=== PATIENT | male | born 1945 | race Caucasian/White ===

== ENCOUNTER 2021-11-27 11:00 | Outpatient (CLI) | payer MEDICARE, OTHER | END 2021-11-27 11:01 | disposition home or self-care (01) | LOC: CSHLAB 11:00 | PROVIDERS: ATTEND Internal Medicine Gastroenterology | DX: Z20.822 Contact with and (suspected) exposure to COVID-19 (principal) | CPT/HCPCS: 87811 ==

== ENCOUNTER 2021-11-29 10:48 | Day surgery (SDC) | payer MEDICARE, OTHER ==
[2021-11-28 08:41] VITALS: BMI 27.4
[2021-11-29] MEDS ORDERED: Lidocaine 1% MPF 2 ML VIAL ONE (11:05)
[2021-11-29] MEDS ORDERED: Lidocaine 1% PF 5 ML VIAL ONE (11:21)
[2021-11-29] MEDS ORDERED: PROPOFOL 40 ML ONE (11:21)
== END 2021-11-29 13:17 | disposition home or self-care (01) ==
LOC: CSHSDC 10:48
PROVIDERS: ATTEND Internal Medicine Gastroenterology
PROC: 0DB48ZZ Excision of Esophagogastric Junction, Via Natural or Artificial Opening Endoscopic (ICD-10-PCS; principal; 2021-11-29)
PROC: 0D748ZZ Dilation of Esophagogastric Junction, Via Natural or Artificial Opening Endoscopic (ICD-10-PCS; 2021-11-29)
DX: K21.00 Gastro-esophageal reflux disease with esophagitis, without bleeding (principal); K22.2 Esophageal obstruction; K29.50 Unspecified chronic gastritis without bleeding; K44.9 Diaphragmatic hernia without obstruction or gangrene; E78.5 Hyperlipidemia, unspecified; I10 Essential (primary) hypertension; Z20.822 Contact with and (suspected) exposure to COVID-19
CPT/HCPCS: 43239; 43249; C1726; 88305; J2704

== ENCOUNTER 2023-03-24 13:12 | Outpatient (CLI) | payer MEDICARE, OTHER | END 2023-03-24 13:13 | disposition home or self-care (01) | LOC: CSHMRI 13:12 | PROVIDERS: ATTEND Neurological Surgery | DX: M51.17 Intervertebral disc disorders with radiculopathy, lumbosacral region (principal); M47.26 Other spondylosis with radiculopathy, lumbar region | CPT/HCPCS: 72148 ==